=== PATIENT | male | born 1980 | race Caucasian/White ===

== ENCOUNTER 2017-02-27 12:30 | Emergency (ER) | payer OTHER ==
--- NOTE | 2017-02-27 13:51 | ER Document Report ---
ED General - General Chief Complaint: General Weakness Stated Complaint: WEAKNESS Time Seen by Provider: 02/27/17 12:59 Mode of Arrival: Ambulatory Information source: Patient Notes: This is a 36-year-old male who presents after an episode of dizziness today. He states that shortly after drinking a new type of energy drink he began to feel dizzy and weak and also nauseated. He was diaphoretic. He did not have chest pain but he did feel his heart was beating rapidly. He also had tingling in his bilateral hands. The symptoms lasted almost an hour and he is now starting to feel a bit better. He states that he drinks energy drinks daily. He had one monster energy drink this morning and about 2 hours later had a new type of energy drink called "bang ". The symptoms began shortly after that. He also states that he takes caffeine pills. I have greeted and performed a rapid initial assessment of this patient. A comprehensive ED assessment and evaluation of the patient, analysis of test results and completion of the medical decision making process will be conducted by additional ED providers. TRAVEL OUTSIDE OF THE [place] IN LAST 30 DAYS: No - Related Data Allergies/Adverse Reactions: Penicillins Allergy (Verified 02/27/17 12:59) Past Medical History - Social History Smoking Status: Unknown if Ever Smoked Family History: Reviewed & Not Pertinent Patient has suicidal ideation: No Patient has homicidal ideation: No - Past Medical History Cardiac Medical History: Denies: Hx Heart Attack, Hx Hypertension Pulmonary Medical History: Denies: Hx Asthma Neurological Medical History: Denies: Hx Cerebrovascular Accident, Hx Seizures Renal/ Medical History: Denies: Hx Peritoneal Dialysis GI Medical History: Denies: Hx Hepatitis, Hx Hiatal Hernia, Hx Ulcer Infectious Medical History: Denies: Hx Hepatitis Past Surgical History: Denies: Hx Open Heart Surgery, Hx Pacemaker Review of Systems - Review of Systems Constitutional: denies: Chills, Fever, Recent illness EENT: No symptoms reported Cardiovascular: See HPI, Palpitations, Dizziness. denies: Chest pain, Syncope Respiratory: No symptoms reported Gastrointestinal: See HPI, Nausea. denies: Abdominal pain, Vomiting Genitourinary: No symptoms reported Musculoskeletal: No symptoms reported Skin: No symptoms reported Hematologic/Lymphatic: No symptoms reported Neurological/Psychological: Anxiety Physical Exam - Vital signs Vitals: Pulse BP 46 L 118/73 02/27/17 14:10 02/27/17 14:10 - Notes Notes: PHYSICAL EXAMINATION: GENERAL: Well-appearing, well-nourished, somewhat anxious affect and in no acute distress. HEAD: Atraumatic, normocephalic. EYES: Pupils equal round and reactive to light, extraocular movements intact, sclera anicteric, conjunctiva are normal. ENT: nares patent, oropharynx clear without exudates. Moist mucous membranes. NECK: Normal range of motion, supple without lymphadenopathy LUNGS: Breath sounds clear to auscultation bilaterally and equal. No wheezes rales or rhonchi. HEART: Regular rate and rhythm without murmurs ABDOMEN: Soft, nontender, normoactive bowel sounds. No guarding, no rebound. No masses appreciated. EXTREMITIES: Normal range of motion, no pitting or edema. NEUROLOGICAL: Cranial nerves grossly intact. No gross focal motor or sensory deficits appreciated. PSYCH: Normal mood, anxious affect. SKIN: Warm, Dry, normal turgor, no rashes or lesions noted. Course - Vital Signs Vital signs: Temp Pulse Resp BP Pulse Ox 46 L 118/73 02/27/17 14:10 02/27/17 14:10 - Laboratory Result Diagrams: 02/27/17 14:05 02/27/17 14:05 Laboratory results interpreted by me: 02/27/17 02/27/17 14:05 14:05 WBC 13.5 H Seg Neutrophils % 83.9 H Lymphocytes % 8.1 L Absolute Neutrophils 11.4 H Glucose 117 H Total Protein 9.0 H Albumin 5.2 H Discharge - Discharge Disposition: ELOPED
[2017-02-27 14:12] VITALS: BP 118/73
[2017-02-27 14:26] LABS: ABSOLUTE LYMPHOCYTES (AUTO) 1.1 10^3/uL (0.5-4.7); ABSOLUTE NEUT (AUTO) 11.4 10^3/uL (1.7-8.2); BASOPHILS % (AUTO) 0.1 % (0-2); EOSINOPHILS % (AUTO) 0.3 % (0-6); HEMATOCRIT 45.1 % (37.9-51.0); HEMOGLOBIN 15.4 g/dL (13.5-17.0); HGB HCT DIFFERENCE 1.1; LYMPHOCYTES % (AUTO) 8.1 % (13-45); MEAN CORPUSCULAR HEMOGLOBIN 32.3 pg (27.0-33.4); MEAN CORPUSCULAR HGB CONC 34.1 g/dL (32.0-36.0); MEAN CORPUSCULAR VOLUME 95 fl (80-97); MONOCYTES % (AUTO) 7.6 % (3-13); RED BLOOD COUNT 4.77 10^6/uL (4.35-5.55); SEGMENTED NEUTROPHILS % (AUTO) 83.9 % (42-78); WHITE BLOOD COUNT 13.5 10^3/uL (4.0-10.5)
[2017-02-27 14:49] LABS: ALANINE AMINOTRANSFERASE 41 U/L (21-72); ALBUMIN 5.2 g/dL (3.5-5.0); ALKALINE PHOSPHATASE 82 U/L (38-126); ANION GAP 11 (5-19); ASPARTATE AMINO TRANSFERASE 35 U/L (17-59); BILIRUBIN,DIRECT 0.3 mg/dL (0.0-0.4); BILIRUBIN,TOTAL 0.9 mg/dL (0.2-1.3); BLOOD UREA NITROGEN 15 mg/dL (7-20); CALCIUM 10.1 mg/dL (8.4-10.2); CARBON DIOXIDE 28 mmol/L (22-30); CHLORIDE 101 mmol/L (98-107); CREATININE RESULT 0.92 mg/dL (0.52-1.25); GLUCOSE 117 mg/dL (75-110); POTASSIUM 4.1 mmol/L (3.6-5.0); SODIUM 140.1 mmol/L (137-145)
[2017-02-27 15:09] LABS: URINE BARBITURATES SCREEN NEGATIVE; URINE METHADONE SCREEN NEGATIVE; URINE OPIATES LOW NEGATIVE; URINE PHENCYCLIDINE SCREEN NEGATIVE
--- NOTE | 2017-02-28 09:54 | EKG REPORT ---
SEVERITY:- OTHERWISE NORMAL ECG - SINUS BRADYCARDIA : Confirmed by: Yaritza Moon 28-Feb-2017 09:53:57
== END 2017-02-27 16:40 | disposition left against medical advice (07) ==
LOC: ER 12:30
DX: R53.1 Weakness (principal); R42 Dizziness and giddiness; R11.0 Nausea; R61 Generalized hyperhidrosis; R20.2 Paresthesia of skin; R00.2 Palpitations; F41.9 Anxiety disorder, unspecified; Z88.0 Allergy status to penicillin; Z53.20 Procedure and treatment not carried out because of patient's decision for unspecified reasons
CPT/HCPCS: 36415; 80053; 80307; 84443; 85025; 93005; 93010; 99284